=== PATIENT | male | born 1950 | race Caucasian/White ===

== ENCOUNTER 2019-11-13 11:44 | Emergency (ER) | payer OTHER ==
[~2019-11-13] VITALS: Ht 175.3 cm; Wt 70.3 kg
--- NOTE | 2019-11-13 12:00 | NUR ---
PATIENT TO ER #1
[2019-11-13 12:14] VITALS: BP_SYST 160
[2019-11-13] MEDS ORDERED: METF-380 PO (12:14)
[2019-11-13] MEDS ORDERED: ALBU90AE INH (12:14)
[2019-11-13] MEDS ORDERED: OLAN10TA6 PO (12:14)
[2019-11-13] MEDS ORDERED: BENZ1TAB8 PO (12:14)
[2019-11-13] MEDS ORDERED: LISI10TA PO (12:14)
--- NOTE | 2019-11-13 12:15 | NUR ---
Patient presents to ER C/Oincreased aggressive behavior/medical clearance. Patient BIB BLS, A&Ox3, afebrile, skin pink & warm, denies pain, denies N/V/D. Patient sent by Dr. Salazar for increased aggressive behavior at alf, decreased appettite, and hallucinations.
[2019-11-13 12:50] LABS: BASOPHILS # (AUTO) 0.1 K/uL (0.0-0.2); BASOPHILS % (AUTO) 0.9 % (0.0-2.0); EOSINOPHILS % (AUTO) 0.4 % (0.0-4.0); HEMOGLOBIN 14.8 g/dL (14.0-18.0); LYMPHOCYTES # (AUTO) 0.8 K/uL (1.0-5.5); LYMPHOCYTES % (AUTO) 10.3 % (20.5-51.5); MEAN CORPUSCULAR HEMOGLOBIN 31 pg (27-31); MEAN CORPUSCULAR HGB CONC 34 % (32-36); MEAN CORPUSCULAR VOLUME 93 fL (79.0-98.0); MONOCYTES # (AUTO) 0.5 K/uL (0.0-1.0); MONOCYTES % (AUTO) 5.8 % (1.7-9.3); NEUTROPHILS # (AUTO) 6.8 K/uL (1.8-7.7); NEUTROPHILS % (AUTO) 82.6 % (40.0-70.0); PLATELET COUNT (AUTO) 196 K/uL (130-430); RED BLOOD CELL COUNT(AUTO) 4.74 MIL/uL (4.2-6.2); RED CELL DISTRIBUTION WIDTH 14.2 % (9.0-15.0); WHITE BLOOD COUNT (AUTO) 8.2 K/uL (4.8-10.8)
[2019-11-13 12:59] LABS: ANION GAP 8 (5-15); CALCIUM 9.2 mg/dL (8.4-11.0); CHLORIDE 104 mmol/L (98-107); CREATININE 1.93 mg/dL (0.55-1.30); GLUCOSE 178 mg/dL (70-99); POTASSIUM 4.2 mmol/L (3.5-5.1); SODIUM SERUM 139 mmol/L (136-145); UREA NITROGEN, BLOOD 27 mg/dL (8-21)
--- NOTE | 2019-11-13 13:15 | NUR ---
ER Box lunch given to PT
[2019-11-13 13:16] LABS: ALANINE AMINOTRANSFERASE 23 U/L (12-78); ALBUMIN 3.9 g/dL (3.4-4.8); ASPARTATE AMINOTRANSFERASE 17 U/L (10-37); TOTAL BILIRUBIN 0.6 mg/dL (0.0-1.0)
[2019-11-13 13:17] LABS: ALCOHOL, BLOOD < 3 mg/dL (<10)
[2019-11-13 13:18] LABS: ACETAMINOPHEN < 1 ug/mL (1-30)
[2019-11-13 13:32] LABS: BARBITURATE, URINE NEGATIVE (NEG <=200); BENZODIAZEPINE, URINE NEGATIVE (NEG <=150); CANNABINOID, URINE NEGATIVE (NEG <=50); COCAINE, URINE NEGATIVE (NEG <=150); METHAMPHETAMINES SCREEN,URINE NEGATIVE (NEG <=500); OPIATE, URINE NEGATIVE (NEG <=100); PHENCYCLIDINE SCREEN,URINE NEGATIVE (NEG <=25); UR TRICYCLIC ANTIDEPRESSANTS NEGATIVE (NEG <=300); URINE AMPHETAMINE NEGATIVE (NEG <=500); URINE METHADONE NEGATIVE (NEG <=200); URINE OXYCODONE SCREEN NEGATIVE (NEG <=100); URINE PROPOXYPHENE SCREEN NEGATIVE (NEG <=300)
[2019-11-13 14:25] VITALS: BP_SYST 160
--- NOTE | 2019-11-13 14:25 | NUR ---
Patient to be transferred to [facility]. Is being transferred due to higher level of care. Receiving facility has accepting physician and available space ROOM [address]. Patient belongings inventoried and will be sent with patient. Copy of DISCHARGE SUMMARY SENT WITH EMT. [facility] ambulance service has been called for transfer.
[2019-11-14 11:27] LABS: CHOLESTEROL 132 mg/dL (<200); HDL CHOLESTEROL 94 mg/dL (>45); TRIGLYCERIDES 34 mg/dL (30-150)
[2019-11-14 11:28] LABS: LDL CHOLESTEROL 21 mg/dL (<100)
== END 2019-11-13 14:25 ==
LOC: SED 11:44
DX: Z13.30 Encounter for screening examination for mental health and behavioral disorders, unspecified (principal); J44.9 Chronic obstructive pulmonary disease, unspecified; E11.9 Type 2 diabetes mellitus without complications; I10 Essential (primary) hypertension; F20.9 Schizophrenia, unspecified; Z79.899 Other long term (current) drug therapy
CPT/HCPCS: 36415; 80053; 80061; 80307; 83036; 85025; 93005; 99285; G0480; G0481; G0482